=== PATIENT | male | born 1945 | race Caucasian/White ===

== ENCOUNTER → 2018-07-06 | Outpatient (CLI) | payer OTHER ==
--- NOTE | 2018-07-06 13:30 | 2DMMODE ---
[place] [address] 2 D/M-MODE ECHOCARDIOGRAM Name: LIZZETTE RODRIGUEZ Room: [facility]#: [id number] Admission: 07/06/18 Attend Phys: Physician not on s Discharge: Date of : 49 Date of Service: 07/06/18 1330 Report #: [id number] THIS REPORT FOR: //name// APPROVED REPORT Study performed: 07/06/2018 12:44:23 EXAM: Comprehensive 2D, Doppler, and color-flow Echocardiogram Patient Location: Out-Patient BSA: 2.07 HR: 80 bpm BP: 125/69 mmHg Other Information Study Quality: Good Indications Aortic Insuff. 2D Dimensions IVSd: 12.81 (7-11mm) LVOT Diam: 20.81 (18-24mm) LVDd: 47.10 mm PWd: 11.33 (7-11mm) Ascending Ao: 34.73 (22-36mm) LVDs: 27.72 (25-40mm) Aortic Root: 25.57 mm Volumes Left Atrial Volume (Systole) LA ESV Index: 17.60 mL/m2 Aortic Valve AoV Peak Robert.: 1.25 m/s AO Peak Gr.: 6.22 mmHg LVOT Max P.79 mmHg AO Mean Gr.: 3.21 mmHg LVOT Mean P.66 mmHg LVOT Max V: 0.97 m/s AO V2 VTI: 20.49 cm LVOT Mean V: 0.58 m/s MALOU (VTI): 3.05 cm2 LVOT V1 VTI: 18.35 cm AI [place]: 2.23 m/s2 AI PHT: 477.69 ms Mitral Valve E/A Ratio: 0.73 MV Decel. Time: 184.40 ms MV E Max Robert.: 0.51 m/[place] [address] 2 D/M-MODE ECHOCARDIOGRAM Name: LIZZETTE RODRIGUEZ Room: [facility]#: [id number] Admission: 07/06/18 Attend Phys: Physician not on s Discharge: Date of : 49 Date of Service: 07/06/18 1330 Report #: [id number] MV PHT: 53.48 ms MVA (PHT): 4.11 cm2 TDI E/Lateral E': 5.10 E/Medial E': 7.29 Medial E' Robert.: 0.07 m/s Lateral E' Robert.: 0.10 m/s Pulmonary Valve PV Peak Robert.: 1.48 m/s PV Peak Gr.: 8.78 mmHg Tricuspid Valve RAP Estimate: 5.00 mmHg TR Peak Gr.: 28.31 mmHg RVSP: 33.31 mmHg PA Pressure: 33.31 mmHg Left Ventricle The left ventricle is normal size. There is normal LV segmental wall motion. Mild concentric left ventricular hypertrophy. Left ventricular systolic function is normal. The left ventricular ejection fraction is within the normal range. LVEF is 55-60%. Grade I - abnormal relaxation pattern. Right Ventricle The right ventricle is normal size. The right ventricular systolic function is normal. Atria The left atrium size is normal. The right atrium size is normal. Aortic Valve The aortic valve is normal in structure. Mild aortic regurgitation. There is no aortic valvular stenosis. Mitral Valve The mitral valve is normal in structure. There is no mitral valve regurgitation noted. No evidence of mitral valve stenosis. Tricuspid Valve The tricuspid valve is normal in structure. Mild tricuspid regurgitation. estimate pa pressure 35 mm Hg Pulmonic Valve The pulmonary valve is normal in structure. [place] [address] 2 D/M-MODE ECHOCARDIOGRAM Name: JENNIFERLIZZETTE JOE Room: [facility]#: [id number] Admission: 07/06/18 Attend Phys: Physician not on s Discharge: Date of : 49 Date of Service: 07/06/18 1330 Report #: [id number] Great Vessels The aortic root is normal in size. IVC is not well visualized. Pericardium There is no pericardial effusion. <Conclusion> LVEF is 55-60%. Mild concentric left ventricular hypertrophy. Mild aortic regurgitation. Mild tricuspid regurgitation. estimate pa pressure 35 mm Hg <ELECTRONICALLY SIGNED> By: Jah Caruso MD, FACC 07/06/18 133 29 29 Jah Caruso MD, FAC /INF
== END ==
LOC: M.CRD 12:32
DX: I08.2 Rheumatic disorders of both aortic and tricuspid valves (principal)

== ENCOUNTER → 2019-12-05 | Outpatient (CLI) | payer MEDICARE, OTHER, BC ==
[~2019-12-05] MED LIST: B-122500 MCG SUBLING; CELEBREX 200 M200 M1 PO; ELIQUIS5 MG PO; MYRBETRIQ25 MG PO; NORTRIPTYLINE H10 M1 PO; OMEPRAZOLE 20 M20 M1 PO; OXYCODONE HCL 55 MG PO; TIROSINT100 MCG PO; TRAMADOL 50 MG50 MG PO; VITAMIN D3250 MC2 PO; [UNRECOGNIZED DRUG - OTHER] PO
[2019-12-05 11:02] LABS: ABSOLUTE EOSINOPHILS 0.1 thou/uL (0.0-0.7); ABSOLUTE LYMPHOCYTES 1.4 thou/uL (0.8-5.3); ABSOLUTE MONOCYTES 0.4 thou/uL (0.0-1.2); EOSINOPHILS 1.9 %; HEMATOCRIT 39.7 % (42.0-52.0); HEMOGLOBIN 12.9 gm/dL (14.0-18.0); LYMPHOCYTES 28.1 %; MCH 26.7 pg (26.0-34.0); MCHC 32.6 g/dL (28.0-37.0); MCV 81.8 fL (80.0-100.0); MONOCYTES 7.1 %; MPV 6.7 fl. (7.2-11.1); NUCLEATED RBCS 0 /100WBC; PLATELET COUNT* 298 thou/uL (150-400); POLYS 61.9 %; RBC 4.84 mil/uL (4.50-6.00); RDW-CV 15.6 % (10.5-14.5); WBC 4.9 thou/uL (4.0-11.0)
[2019-12-05 11:23] LABS: APTT 23.9 Seconds (25.0-31.3); PROTIME 10.5 Seconds (9.20-11.50)
[2019-12-05 11:41] LABS: ALBUMIN 3.8 g/dL (3.4-5.0); CALCIUM 9.6 mg/dL (8.5-10.1); CREATININE 0.9 mg/dL (0.6-1.3); POTASSIUM 4.7 mmol/L (3.5-5.1); TOTAL BILIRUBIN 0.9 mg/dL (<0.1-1.0); TOTAL PROTEIN 6.6 g/dL (6.4-8.2)
[2019-12-05 12:20] LABS: ESR (SEDRATE) 0 mm/hr (0-20)
--- NOTE | 2019-12-05 16:00 | EKG ---
[place] [address] ELECTROCARDIOGRAM REPORT Name: LIZZETTE RODRIGUEZ Room: [facility]#: [id number] Admission: 12/05/19 Attend Phys: Lizzette Cordova DO Discharge: Date of : 49 Date of Service: 12/05/19 1133 Report #: [id number] THIS REPORT FOR: //name// [facility] Test Date: 2019-12-05 Test Time: 11:33:16 Pat Name: LIZZETTE RODRIGUEZ Department: Room: Gender: Proposal Coordinator: : 1945 Requested By: Lizzette Cordova Order Number: [id number] Joslyn MD: Dylan Santa Measurements Intervals [place] Rate: 58 P: -42 AK: 195 QRS: -28 QRSD: 112 T: 25 QT: 434 QTc: 427 Interpretive Statements Sinus rhythm Minor intraventricular conduction delay No previous ECG available for comparison Electronically Signed On 12-05-2019 16:00:02 CDT by Dylan Santa [email or web address] <ELECTRONICALLY SIGNED> By: Dylan Santa MD, [facility] 12/05/19 1600 D: 10/1132 113 Dylan Santa MD, FACC /EPI
[2019-12-06 02:06] LABS: GLYCOHEMOGLOBIN (HGB A1C) 5.8 % (4.8-5.6)
== END ==
LOC: M.LAB 10:32
PROVIDERS: ATTEND Orthopaedic Surgery
DX: Z01.812 Encounter for preprocedural laboratory examination (principal); Z01.818 Encounter for other preprocedural examination; Z20.828 Contact with and (suspected) exposure to other viral communicable diseases; M16.12 Unilateral primary osteoarthritis, left hip

== ENCOUNTER 2019-12-11 11:39 | Observation (INO) | payer MEDICARE, BC, OTHER ==
[~2019-12-11] VITALS: Ht 172.7 cm; Wt 88.5 kg
[~2019-12-11 11:39] MED LIST changes: -ELIQUIS5 MG PO; -OXYCODONE HCL 55 MG PO
[2019-12-11 17:50] VITALS: BP 102/70
[2019-12-12] VITALS (8 sets, daily range): BP systolic 97–104; BP diastolic 55–67
[2019-12-12 04:37] LABS: HEMATOCRIT 33.5 % (42.0-52.0); HEMOGLOBIN 10.9 gm/dL (14.0-18.0)
[2019-12-12] MEDS ORDERED: ELIQUIS5 MG PO (07:44)
[2019-12-12] MEDS ORDERED: OXYCODONE HCL 55 MG PO (07:44)
--- NOTE | 2019-12-14 16:26 | OP ---
[address] [address] OPERATIVE REPORT Name: LIZZETTE RODRIGUEZ Room: [address] [place] M.RRoxann#: [id number] Admission: 12/11/19 Attend Phys: Jaelyn Hodges MD Discharge: 12/12/19 Date of : 49 Report #: [id number] THIS REPORT FOR: //name// cc: PATO CRANE KEVIN ~ CC: PATO Cordova DICTATED BY: Antonio Lazo DO DATE OF SERVICE: 12/11/2019 PREOPERATIVE DIAGNOSIS: Advanced degenerative joint disease, left hip. POSTOPERATIVE DIAGNOSIS: Advanced degenerative joint disease, left hip. PROCEDURE PERFORMED: Left total hip arthroplasty using the Biomet Taperloc system with the following components: 1. 56 mm G7 finned acetabular shell. 2. A size 13 Taperloc Microplasty femoral component. 3. A 40 mm ceramic head with a -3 neck adapter. 4. A 40 mm high wall G7 acetabular liner. 5. A 6.5 mm bone screws with lengths 25 and 30. SURGEON: Lizzette Cordova DO ASSISTANT STORE DIRECTOR: Antonio Lazo DO and Kris Barker DO ANESTHESIA: General. ESTIMATED BLOOD LOSS: 500 mL. SPECIMENS: None. COMPLICATIONS: None. DISPOSITION: Stable to PACU. ANTIBIOTICS: 2 g IV Ancef preop. INDICATIONS FOR SURGERY: The patient is a 74-year-old male who is followed in clinic for left hip pain. X-rays are consistent with advanced DJD. He tried and failed extensive conservative measures. He continues to have pain on a daily basis, interfering with his ADLs. We therefore discussed total hip arthroplasty with the goal of decreased pain and increased function. [address] [address] OPERATIVE REPORT Name: LIZZETTE RODRIGUEZ Room: [address] [place] Polo#: [id number] Admission: 12/11/19 Attend Phys: Jaelyn Hodges MD Discharge: 12/12/19 Date of : 49 Report #: [id number] DESCRIPTION OF PROCEDURE: The patient was seen in the preoperative area. Written consent was obtained. The operative site was marked. He was brought back to the operative suite and given the benefit of general anesthesia. He was placed on a well-padded [place] table with all bony prominences well-padded. The perineal post was placed and well-padded as well. Both legs were well-padded and placed in the boot and subsequently in the spars of the [place] table. Left lower extremity was then prepped and draped in normal sterile fashion. Surgical time out was performed, correct site, side and procedure were verified. Everyone present was in agreement. Procedure began with creation of the standard ASI incision approximately 1 cm lateral and distal to the ASIS. Sharp dissection through skin. Used a Bovie to dissect down to the tensor fascia. A new blade was used to make an incision through the fascia approximately 1 cm lateral to the interval. We then identified the interval between the sartorius and TFL, and placed retractors appropriately. We identified the superior and inferior neck. We then localized and cauterized the branches of the circumflex vessels. We then placed our retractors appropriately around the neck and pretreated the capsule with the Aquamantys. We performed a standard anterior capsulectomy. We again placed retractors intracapsularly around the proximal femur. We made our neck cut approximately 1 cm proximal to the lesser trochanter. The bone was removed. We placed retractors around the acetabulum. The remaining capsule labral tissue was removed. We sequentially reamed up to a 55. This was done under fluoroscopy to ensure the appropriate size and alignment. The final acetabular cup was impacted into place, screws were placed in the posterior superior quadrant. We took x-rays to confirm the appropriate position of the cup and screws. We then placed a high wall acetabular liner in the anterior superior position. We turned our attention to the femur. Retractors were placed appropriately. Maximal external rotation to 120 degrees was achieved. Released the capsule of the inferior neck. We also performed a posterior capsular release. Placed the hook and dropped the leg into full extension and adduction. At this point, we had a good view of the proximal femur. We prepped it with a box osteotome followed by the Rat tail rasp and sequentially broached up to a 13. Then, a standard offset and a -3 neck adapter were trialed. Hip was reduced, taken through range of motion, found to be stable. We took fluoroscopic images, which confirmed the appropriate positioning and leg lengths. We then dislocated the hip, extended and adducted it. We removed all trial components. We thoroughly irrigated. Vancomycin was introduced throughout the wound. The final size 13 stem was impacted, which sat in a similar position. We therefore opened and impacted the -3 neck adapter with a 40 mm ceramic head. Hip was reduced. Again, stability was confirmed. Wound was thoroughly irrigated. Adequate hemostasis was achieved with Bovie and Aquamantys. Closed the fascial layer with a running #1 Stratafix. Subcutaneous tissues were closed with 2-0 Monocryl in a simple inverted interrupted fashion. Subcuticular layer was reapproximated with a running 3-0 Stratafix and Dermabond skin glue. A sterile Mepilex was applied. The patient was awoken from anesthesia and transferred to PACU in stable condition. [place] [address] OPERATIVE REPORT Name: LIZZETTE RODRIGUEZ Room: [address] [place] Polo#: [id number] Admission: 12/11/19 Attend Phys: Jaelyn Hodges MD Discharge: 12/12/19 Date of : 49 Report #: [id number] complications. Needle and sponge counts correct x 2. Dr. Cordova was present for all critical aspects of the case. <ELECTRONICALLY SIGNED> By: Lizzette Cordova DO 12/14/19 1626 1605 [id number] Cordova DO /nt
== END 2019-12-12 14:30 | disposition home or self-care (01) ==
LOC: M.PRE → M.TBA 11:39 → M.ORTHSURG 11:39 → M.PRE 12:09 → M.ORTHSURG 17:36
PROVIDERS: Orthopaedic Surgery; ADMIT Internal Medicine; ATTEND Internal Medicine
DX: M16.12 Unilateral primary osteoarthritis, left hip (principal); G47.30 Sleep apnea, unspecified; N32.81 Overactive bladder; F32.9 Major depressive disorder, single episode, unspecified; Z98.84 Bariatric surgery status; Z96.651 Presence of right artificial knee joint; Z87.891 Personal history of nicotine dependence; Z79.899 Other long term (current) drug therapy